=== PATIENT | female | born 1955 | race African-American/Black ===

== ENCOUNTER → 2021-10-04 | Outpatient (CLI) | payer MEDICARE ==
--- NOTE | 2021-10-04 10:29 | KCIC ---
Digital Mammogram Bilateral History: Routine screening Technique: 2-D digital CC and MLO views were obtained. CAD - computer aided detection was utilize d. Comparison: None. This is a baseline exam. Findings: Breast Tissue Density B : There are scattered areas of fibroglandular density In the 3:00 position, approximately 7 cm from the nipple, there is an oval circumscribed 1 cm mass. N o other evidence of breast mass is seen. There are no malignant appearing calcifications, or areas of architectural distortion. IMPRESSION: Small mass in the 3:00 position of the right breast. Further evaluation with targeted right breast ul trasound is recommended. Assessment: BI-RADS Category 0. Incomplete. Recommendation: Targeted right breast ultrasound. The patient be contacted with results and asked to schedule for additional imaging. The patient will receive a letter with the results in the mail. Patient information will be entered into the [facility] reminder system with a target recall date for the next mammogram. A reminder letter will be genera danae. Electronically signed by: Merissa Dean MD (10/04/2021 10:27 AM) [email or web address]
== END ==
LOC: EDBD 08:13 → KCIC MAMMO 08:13
PROVIDERS: ATTEND Pediatrics
DX: Z12.31 Encounter for screening mammogram for malignant neoplasm of breast (principal)
CPT/HCPCS: 77067